=== PATIENT | male | born 1960 | race Caucasian/White ===

== ENCOUNTER → 2019-10-02 | Day surgery (SDC) | payer BC ==
[~2019-10-02] MED LIST: PROPOFOL 10 MG/ML 20 ML VIAL IV ONE; SODIUM CHLORIDE 0.9% 1,000 ML IV SCH; SODIUM CHLORIDE 0.9% 500 ML 500 ML IV ONE
[2019-10-02 11:34] VITALS: RESP 16; TEMP 98
[2019-10-02 11:49] LABS: African American GFR (CKD) >90 (>60 ml/min/1.73 sqM); Anion Gap 9 mmol/L; Blood Urea Nitrogen 12 mg/dL (9-20); Calcium 9.4 mg/dL (8.4-10.2); Carbon Dioxide 23 mmol/L (22-30); Chloride 106 mmol/L (98-107); Glucose 105 mg/dL (74-99); Sodium 138 mmol/L (137-145)
[2019-10-02 11:52] LABS: Potassium 4.6 mmol/L (3.5-5.1)
--- NOTE | 2019-10-02 12:37 | P.HPCAR ---
History of Present Illness This is Dr. Miller dictating an H&P on this patient The patient was interviewed and examined by me IMPRESSION / ASSESSMENT: Persistent atrial fibrillation, symptomatic, failed chemical cardioversion with flecainide 100 mg twice daily Hypertension PLAN: Electrical cardioversion on flecainide 100 mg twice daily If the adjustment of the dose of diltiazem if needed Continue anticoagulation uninterrupted HPI Patient remains in atrial fibrillation despite starting flecainide 100 mg twice daily about a week back. His chest does not show any evidence for ischemia. He was in persistent atrial fibrillation and I had called him to start flecainide 100 mg twice daily. His follow-up 12-lead ECG showed atrial fibrillation. He f eels the palpitations and he doesn't feel right and feels short of breath No dizziness lightheadedness or chest pain No fever chills or rigors. Pulmonary symptoms no abdominal symptoms no lower extremity edema no syncope ROS: No fever chills or rigors, no cough, phlegm or expectoration, no nausea, vomiting or diarrhea, no hematuria, dysuria, no musculoskeletal complaints, no strokes or seizures, no skin lesions. EXAMINATION: Afebrile 98F pulse rate in the 80s irregular No JVD no carotid bruits Normal S1, normal S2 but irregular no murmurs or gallop no rub Abdomen is soft nontender Extremities are warm. He has a cast in the right lower leg REVIEW OF LABS, ECG & MEDICAL DATA Sodium 138, potassium 4.6, BUN 12 creatinine 0.73, glucose 105, calcium 9.4 Physical Exam Vitals: Vital Signs Temp Pulse Resp BP Pulse Ox 10/02/19 11:31 98 F 87 16 138/97 98 Intake and Output 10/01/19 10/02/19 10/02/19 22:59 06:59 14:59 Intake Total 50 Balance 50 Intake: IV 50 Other: Weight 92.7 kg Physical Examination Vital Signs Temp Pulse Resp BP Pulse Ox 10/02/19 11:31 98 F 87 16 138/97 98 Intake and Output 10/01/19 10/02/19 10/02/19 22:59 06:59 14:59 Intake Total 50 Balance 50 Intake: IV 50 Other: Weight 92.7 kg Results 10/02/19 11:10 Comprehensive Metabolic Panel 10/02/19 Range/Units 11:10 Sodium 138 (137-145) mmol/L Potassium 4.6 (3.5-5.1) mmol/L Chloride 106 (98-107) mmol/L Carbon Dioxide 23 (22-30) mmol/L BUN 12 (9-20) mg/dL Creatinine 0.73 (0.66-1.25) mg/dL Glucose 105 H (74-99) mg/dL Calcium 9.4 (8.4-10.2) mg/dL Current Medications Generic Name Dose Route Start Last Admin Trade Name Freq PRN Reason Stop Dose Admin Sodium Chloride 1,000 mls @ 20 mls/hr 10/02/19 06:09 Saline 0.9% IV .Q24H DINO Intake and Output 10/01/19 10/02/19 10/02/19 22:59 06:59 14:59 Intake Total 50 Balance 50 Intake: IV 50 Other: Weight 92.7 kg Patient Weight 10/03/19 06:59 Weight 92.7 kg 10/02/19 11:10
--- NOTE | 2019-10-02 12:44 | P.PCN ---
Preoperative Diagnosis: Diagnosis Persistent symptomatically atrial fibrillation currently on flecainide 100 mg twice daily Failed chemical cardioversion Procedure details 200 J biphasic shock was used to successfully electrically cardiovert the patient in the AP configuration Sinus mechanism post cardioversion in the 80s Suggest Continue flecainide 100 mg twice daily Continue diltiazem 240 mg by mouth daily Continue ELIQUIS If he has a recurrence of atrial fibrillation he should be considered for an A. fib ablation
[2019-10-02 19:01] VITALS: BP 118/82; PULSE 75
== END | disposition home or self-care (01) ==
LOC: CATHEP 10:56
PROVIDERS: ATTEND Internal Medicine Clinical Cardiac Electrophysiology
DX: I48.19 Other persistent atrial fibrillation (principal); I10 Essential (primary) hypertension; Z79.01 Long term (current) use of anticoagulants; Z88.0 Allergy status to penicillin; Z79.02 Long term (current) use of antithrombotics/antiplatelets; Z79.899 Other long term (current) drug therapy; Z98.890 Other specified postprocedural states
CPT/HCPCS: 92960; 80061; 80048; 84443; J2704

== ENCOUNTER 2019-10-03 10:35 | Emergency (ER) | payer BC ==
[2019-10-03 10:42] VITALS: RESP 18
--- NOTE | 2019-10-03 11:05 | ED ---
General Adult HPI - General Chief complaint: Recheck/Abnormal Lab/Rx Stated complaint: foot pain Time Seen by Provider: 10/03/19 10:51 Source: patient, RN notes reviewed Mode of arrival: ambulatory Limitations: no limitations - History of Present Illness Initial comments: Patient is a pleasant 59-year-old male presenting to the emergency Department with complaints of right ankle discomfort. Patient states symptoms have been somewhat increasing over the past week. Patient did have surgery several weeks ago. Patient was in a soft cast then switched to a hard cast around a week ago. Patient did have a fracture approximately a month and a half ago. Patient did not have immediate surgery secondary to concerns for swelling. Patient states he did fracture both the inner and outer parts of the ankle and did have a plate placed. Patient denies any fevers. Patient states symptoms are waxing and waning. Patient states symptoms this morning were somewhat severe. Patient was prescribed OxyContin however does not have any with him because he is out of town. Patient did have his surgery done in [place]. Patient came to [facility] in order to see cardiology here. Patient was cardioverted for history of atrial fibrillation. - Related Data Home Medications Medication Instructions Recorded Confirmed Apixaban [Eliquis] 5 mg PO BID 09/29/19 10/02/19 Diltiazem Cd [Cardizem CD] 240 mg PO DAILY 09/29/19 10/02/19 Docusate [Colace] 200 mg PO Q2D PRN 09/29/19 09/29/19 Acetaminophen Tab [Tylenol Tab] 500 mg PO Q6H 10/02/19 10/02/19 Flecainide Acetate 100 mg PO BID 10/02/19 10/02/19 Allergies Allergy/AdvReac Type Severity Reaction Status Date / Time Penicillins Allergy Unknown Verified 10/02/19 11:44 Review of Systems ROS Statement: Those systems with pertinent positive or pertinent negative responses have been documented in the HPI. ROS Other: All systems not noted in ROS Statement are negative. Constitutional: Denies: fever Eyes: Denies: eye pain ENT: Denies: ear pain Respiratory: Denies: cough, dyspnea Cardiovascular: Denies: chest pain, palpitations Endocrine: Denies: fatigue Gastrointestinal: Denies: abdominal pain Genitourinary: Denies: dysuria Musculoskeletal: Reports: as per HPI Skin: Denies: rash Neurological: Denies: weakness Past Medical History Past Medical History: Atrial Fibrillation, Hypertension History of Any Multi-Drug Resistant Organisms: None Reported Additional Past Surgical History / Comment(s): cardioversion Past Psychological History: No Psychological Hx Reported Smoking Status: Never smoker Past Alcohol Use History: None Reported, Occasional Past Drug Use History: None Reported General Exam Limitations: no limitations General appearance: alert, in no apparent distress Head exam: Present: normocephalic Eye exam: Present: normal appearance Neck exam: Present: normal inspection Respiratory exam: Present: normal lung sounds bilaterally Cardiovascular Exam: Present: regular rate, normal rhythm GI/Abdominal exam: Present: soft. Absent: tenderness Extremities exam: Present: other (Right leg with cast from the distal foot to the proximal tib-fib region. Distally toes are neurovascularly intact. Good strength, good sensation, cap refill less than 2 seconds. No color change.) Neurological exam: Present: alert Psychiatric exam: Present: normal affect, normal mood Skin exam: Present: normal color Course Vital Signs 10/03/19 10/03/19 10/03/19 10:37 13:13 15:14 Temperature 97.7 F Pulse Rate 72 80 60 Respiratory 18 18 18 Rate Blood Pressure 142/93 117/77 121/79 O2 Sat by Pulse 100 99 100 Oximetry - Reevaluation(s) Reevaluation #1: 10/03/19 12:56 Patient's orthopedic doctor has been paged., Dr. Stephenson from [facility] in [place] 10/03/19 14:39 Reevaluated and updated. Still waiting on Dr. Stephenson 10/03/19 16:29 Dr. Jensen did call back however I was occupied with a critical pediatric patient and unable to take the call. He did go back into surgery. Patient again reevaluated and updated. Patient states pain is back down to 50%, patient states pain was very severe earlier. 10/03/19 16:36 Case was discussed with Dr. Elise who does work at [facility] in [place] who will accept transfer. Patient and family updated. Family states they will drive patient. Patient refuses ambulance for transfer. Records will be provided. EKG Findings - EKG Comments: EKG Findings:: Normal sinus rhythm at 60. NM 190. QRS 90. QT 432. QTC 432. Normal axis. Normal QRS. No acute ST change. Procedures - Orthopedic Splinting/Casting Injury #1 Side: right Lower Extremity Injury Location: short leg, ankle Lower Extremity Immobilizer: posterior splint Medical Decision Making - Lab Data Result diagrams: 10/03/19 11:45 10/03/19 11:45 Lab Results 10/03/19 10/03/19 10/03/19 Range/Units 11:45 11:45 11:45 WBC 8.8 (3.8-10.6) k/uL RBC 4.36 (4.30-5.90) m/uL Hgb 14.6 (13.0-17.5) gm/dL Hct 42.8 (39.0-53.0) % MCV 98.3 (80.0-100.0) fL MCH 33.6 (25.0-35.0) pg MCHC 34.1 (31.0-37.0) g/dL RDW 12.4 (11.5-15.5) % Plt Count 269 (150-450) k/uL Neutrophils % 74 % Lymphocytes % 15 % Monocytes % 5 % Eosinophils % 2 % Basophils % 1 % Neutrophils # 6.6 (1.3-7.7) k/uL Lymphocytes # 1.3 (1.0-4.8) k/uL Monocytes # 0.5 (0-1.0) k/uL Eosinophils # 0.2 (0-0.7) k/uL Basophils # 0.1 (0-0.2) k/uL PT (9.0-12.0) sec INR (<1.2) APTT (22.0-30.0) sec Sodium 137 (137-145) mmol/L Potassium 4.3 (3.5-5.1) mmol/L Chloride 104 (98-107) mmol/L Carbon Dioxide 21 L (22-30) mmol/L Anion Gap 12 mmol/L BUN 12 (9-20) mg/dL Creatinine 0.72 (0.66-1.25) mg/dL Est GFR (CKD-EPI)AfAm >90 (>60 ml/min/1.73 sqM) Est GFR (CKD-EPI)NonAf >90 (>60 ml/min/1.73 sqM) Glucose 88 (74-99) mg/dL Plasma Lactic Acid Kevin 1.1 (0.7-2.0) mmol/L Calcium 9.3 (8.4-10.2) mg/dL Total Bilirubin 0.7 (0.2-1.3) mg/dL AST 33 (17-59) U/L ALT 50 (21-72) U/L Alkaline Phosphatase 74 (38-126) U/L Total Protein 7.7 (6.3-8.2) g/dL Albumin 4.1 (3.5-5.0) g/dL 10/03/19 Range/Units 11:45 WBC (3.8-10.6) k/uL RBC (4.30-5.90) m/uL Hgb (13.0-17.5) gm/dL Hct (39.0-53.0) % MCV (80.0-100.0) fL MCH (25.0-35.0) pg MCHC (31.0-37.0) g/dL RDW (11.5-15.5) % Plt Count (150-450) k/uL Neutrophils % % Lymphocytes % % Monocytes % % Eosinophils % % Basophils % % Neutrophils # (1.3-7.7) k/uL Lymphocytes # (1.0-4.8) k/uL Monocytes # (0-1.0) k/uL Eosinophils # (0-0.7) k/uL Basophils # (0-0.2) k/uL PT 10.6 (9.0-12.0) sec INR 1.0 (<1.2) APTT 27.6 (22.0-30.0) sec Sodium (137-145) mmol/L Potassium (3.5-5.1) mmol/L Chloride (98-107) mmol/L Carbon Dioxide (22-30) mmol/L Anion Gap mmol/L BUN (9-20) mg/dL Creatinine (0.66-1.25) mg/dL Est GFR (CKD-EPI)AfAm (>60 ml/min/1.73 sqM) Est GFR (CKD-EPI)NonAf (>60 ml/min/1.73 sqM) Glucose (74-99) mg/dL Plasma Lactic Acid Kevin (0.7-2.0) mmol/L Calcium (8.4-10.2) mg/dL Total Bilirubin (0.2-1.3) mg/dL AST (17-59) U/L ALT (21-72) U/L Alkaline Phosphatase (38-126) U/L Total Protein (6.3-8.2) g/dL Albumin (3.5-5.0) g/dL Disposition Clinical Impression: Postoperative infection Disposition: OTHER INSTITUTION NOT DEFINED Is patient prescribed a controlled substance at d/c from ED?: No Referrals: Js Schultz DO [Primary Care Provider] - 1-2 days Time of Disposition: 16:37 - Out of Hospital Transfer - Req. Specs Out of Hospital Transfer - Requested Specifics: Other Emergency Center
--- NOTE | 2019-10-03 11:52 | XR ---
EXAMINATION TYPE: XR ankle complete RT DATE OF EXAM: 10/03/2019 CLINICAL HISTORY: Right ankle worsening pain since surgery September 25. TECHNIQUE: Frontal, lateral and oblique images of the right ankle are obtained. COMPARISON: None. FINDINGS: Overlying fiberglass cast material. Lateral fixating plate through lateral malleolus. Poor visualization of acute or subacute fracture. Mild to moderate soft tissue swelling over lateral malle olus remains present. Alignment satisfactory. Ankle mortise symmetry preserved. IMPRESSION: As above.
[2019-10-03] MEDS ORDERED: MORPHINE SULFATE 2 MG/ML SYRINGE IVP STA (12:26)
[2019-10-03 12:35] LABS: Basophils # (A) 0.1 k/uL (0-0.2); Basophils % (A) 1 %; Eosinophils # (A) 0.2 k/uL (0-0.7); Eosinophils % (A) 2 %; HCT 42.8 % (39.0-53.0); HGB 14.6 gm/dL (13.0-17.5); Lymphocytes # (A) 1.3 k/uL (1.0-4.8); Lymphocytes % (A) 15 %; MCH 33.6 pg (25.0-35.0); MCHC 34.1 g/dL (31.0-37.0); MCV 98.3 fL (80.0-100.0); Mean Platelet Volume 6.4; Monocytes # (A) 0.5 k/uL (0-1.0); Monocytes % (A) 5 %; Neutrophils # (A) 6.6 k/uL (1.3-7.7); Neutrophils % (A) 74 %; Platelet Count 269 k/uL (150-450); RBC 4.36 m/uL (4.30-5.90); RDW 12.4 % (11.5-15.5); WBC 8.8 k/uL (3.8-10.6)
[2019-10-03 12:41] LABS: ALT 50 U/L (21-72); AST 33 U/L (17-59); African American GFR (CKD) >90 (>60 ml/min/1.73 sqM); Albumin 4.1 g/dL (3.5-5.0); Alkaline Phosphatase 74 U/L (38-126); Anion Gap 12 mmol/L; Blood Urea Nitrogen 12 mg/dL (9-20); Calcium 9.3 mg/dL (8.4-10.2); Carbon Dioxide 21 mmol/L (22-30); Chloride 104 mmol/L (98-107); Glucose 88 mg/dL (74-99); Potassium 4.3 mmol/L (3.5-5.1); Sodium 137 mmol/L (137-145); Total Bilirubin 0.7 mg/dL (0.2-1.3); Total Protein 7.7 g/dL (6.3-8.2)
[2019-10-03 13:00] LABS: Partial Thromboplastin Time 27.6 sec (22.0-30.0); Prothrombin Time 10.6 sec (9.0-12.0)
[2019-10-03] MEDS ORDERED: HYDROmorphone 1 MG/ML 1 ML SYRINGE IVP STA (14:37)
[2019-10-03 17:41] VITALS: BP 112/75; PULSE 54; TEMP 98.7
== END 2019-10-03 17:48 | disposition short-term general hospital (02) ==
LOC: EC 10:35
DX: T81.40XA Infection following a procedure, unspecified, initial encounter (principal); I48.91 Unspecified atrial fibrillation; I10 Essential (primary) hypertension; Z88.0 Allergy status to penicillin; Z79.01 Long term (current) use of anticoagulants; Z79.891 Long term (current) use of opiate analgesic; Z79.899 Other long term (current) drug therapy; Z87.81 Personal history of (healed) traumatic fracture; Z98.890 Other specified postprocedural states
CPT/HCPCS: 36415; 93005; 80053; 83605; 85025; 85610; 85730; 87040; 87070; 87205; 73610; 99285; 29515; 96365; 96375 ×2; J0690; J2270; J1170

== ENCOUNTER 2019-11-27 10:59 | Day surgery (SDC) | payer BC ==
[2019-11-17 12:52] VITALS: BMI 29.2
[2019-11-27] MEDS ORDERED: SODIUM CHLORIDE 0.9% 1,000 ML IV ONE ×2 (12:00→18:46)
[2019-11-27 12:15] LABS: Basophils # (A) 0.1 k/uL (0-0.2); Basophils % (A) 1 %; Eosinophils # (A) 0.1 k/uL (0-0.7); Eosinophils % (A) 2 %; HCT 48.2 % (39.0-53.0); HGB 16.5 gm/dL (13.0-17.5); Lymphocytes # (A) 1.7 k/uL (1.0-4.8); Lymphocytes % (A) 26 %; MCH 33.4 pg (25.0-35.0); MCHC 34.2 g/dL (31.0-37.0); MCV 97.7 fL (80.0-100.0); Mean Platelet Volume 8.2; Monocytes # (A) 0.4 k/uL (0-1.0); Monocytes % (A) 6 %; Neutrophils # (A) 4.3 k/uL (1.3-7.7); Neutrophils % (A) 64 %; Platelet Count 326 k/uL (150-450); RBC 4.93 m/uL (4.30-5.90); RDW 13.5 % (11.5-15.5); WBC 6.8 k/uL (3.8-10.6)
[2019-11-27 12:23] LABS: African American GFR (CKD) >90 (>60 ml/min/1.73 sqM); Anion Gap 12 mmol/L; Blood Urea Nitrogen 14 mg/dL (9-20); Calcium 9.8 mg/dL (8.4-10.2); Carbon Dioxide 25 mmol/L (22-30); Chloride 104 mmol/L (98-107); Glucose 96 mg/dL (74-99); Non-African American GFR(CKD) >90 (>60 ml/min/1.73 sqM); Sodium 141 mmol/L (137-145)
[2019-11-27 12:51] LABS: Potassium 4.4 mmol/L (3.5-5.1)
[2019-11-27] MEDS ORDERED: ROCURONIUM BROMIDE 10 MG/ML 10 ML VIAL IV ONE (13:17)
[2019-11-27] MEDS ORDERED: fentaNYL (PF) 50 MCG/ML 2 ML AMP ONE (13:17)
[2019-11-27] MEDS ORDERED: ONDANSETRON 4 MG/2 ML VIAL ONE (13:17)
[2019-11-27] MEDS ORDERED: ISOPROTERENOL 250 MCG/1.25 ML SYR IV ONE (13:17)
[2019-11-27] MEDS ORDERED: NEOSTIGMINE 1 MG/ML 10 ML VIAL ONE (13:17)
[2019-11-27] MEDS ORDERED: PROPOFOL 10 MG/ML 20 ML VIAL IV ONE (13:17)
[2019-11-27] MEDS ORDERED: GLYCOPYRROLATE 0.2 MG/ML 2 ML VIAL ONE (13:17)
[2019-11-27] MEDS ORDERED: HYDROmorphone (PF) 1 MG/ML ONE (13:17)
[2019-11-27] MEDS ORDERED: HEPARIN SODIUM,PORCINE 10,000 UNIT/ML 1 ML VIAL ONE (13:17)
[2019-11-27] MEDS ORDERED: PROTAMINE SULFATE 10 MG/ML 5 ML VIAL IV ONE (13:17)
[2019-11-27] MEDS ORDERED: FUROSEMIDE 10 MG/ML 2 ML VIAL ONE (13:17)
[2019-11-27] MEDS ORDERED: MIDAZOLAM 2 MG/2 ML VIAL ONE (13:17)
[2019-11-27] MEDS ORDERED: SUCCINYLCHOLINE CHLORIDE 100 MG/5 ML SYR IV ONE (13:17)
[2019-11-27] MEDS ORDERED: LIDOCAINE 1% INJ 10MG/ML (20 ML MDV) ONE (13:35)
[2019-11-27] MEDS ORDERED: LIDOCAINE 1% INJ 10MG/ML (20 ML MDV) SQ ONE (14:12)
[2019-11-27] MEDS ORDERED: HEPARIN SOD,PORK IN 0.45% NACL 25,000 UNIT in 0.45% NACL 1 250ML.BAG IV ONE (14:13)
[2019-11-27] MEDS ORDERED: IOPAMIDOL-370 100ML BTL INJ ONE (16:50)
[2019-11-27] MEDS ORDERED: HEPARIN SODIUM (1,000 UNIT/ML) 1,000 UNIT in SODIUM CHLORIDE 0.9% 1,000 ML IRRIGATION ONE (16:51)
--- NOTE | 2019-11-27 19:05 | P.PCN ---
Preoperative Diagnosis: Diagnosis Atrial fibrillation, symptomatic, refractory to therapy Persistent Refractory to flecainide Wide QRS with flecainide Result No left atrial appendage mass seen on intracardiac echo Successful pulmonary vein isolation of all veins using cryo-ablation Complete entrance block in all 4 veins confirmed No evidence for phrenic nerve injury Radiofrequency ablation ablation along the mitral isthmus, left atrium with organization to an atrial tachycardia Successful mapping and ablation of atrial tachycardia at the roof with termi nation Esophageal deflection YES Electrical cardioversion with a synchronized shock across the chest NO Procedure details Patient was brought to the EP lab in a fasting state. Written informed consent was obtained prior to the procedure. Procedure performed under general anesthesia After initial muscle relaxant use, muscle relaxants were not given thereafter in order to assess phrenic nerve during procedure. Patient prepped and draped as per protocol Full cryo-set up with standard preparation of the cryoablation tools done. Femoral Venous access obtained on the right and left groins Venous and arterial Sheaths placed. Diagnostic catheters for the high right atrium, phrenic nerve stimulation and pacing, His bundle, RV and coronary sinus placed Intracardiac echo catheter placed. Long sheath placed in the right atrium Left and right transseptal catheterization performed under intracardiac echo guidance. Intravenous heparin with aCT above 300 Later, catheter positioning and balloon positioning in the left atrium, under intracardiac echo guidance Diagnostic EP study with Drug infusion, high-dose Isuprel. No inducible atrial fibrillation at the end of the procedure Coronary sinus pacing and recording Confirmation of bidirectional block across the mitral isthmus line Baseline measurements NE interval 157 ms QRS 88 ms QT 416 ms AH 48 ms HV 40 ms Sinus cycle length 1023 ms Sinus node recovery times at 500 ms was 1198 ms. Corresponded to sinus recovery times abnormal AV node Wenckebach block 380 ms Atrial pacing performed from the high right atrium and the coronary sinus RV pacing Transseptal catheterization performed RA pressure 16/11/14 LA pressure 25/9/14 Transseptal catheterization performed with standard sheath. The cryoablation sheath was then placed with an over the wire exchange without any acute complications. All 4 pulmonary veins were isolated in the following sequence: Left superior followed by left inferior followed by right superior followed by right inferior The cryo-ablation balloon was placed at the os of each vein 1.5 mL of IV dye was injected to confirm an occluded vein Goal during cryoablation was to achieve complete occlusion of the pulmonary vein, achieve -30 degrees C at 30 seconds and achieve -40 degrees C at 60 seconds and a time to effect of less than 60-90 seconds, . If not the balloon was repositioned to obtain this result After completion of Cryoblation with durations from 180-240 seconds, entrance block was confirmed with the Attain circular catheter in a roving fashion around the antrum of the pulmonary veins Phrenic nerve pacing was performed from the SVC, right innominate vein area and diaphragm voltage was monitored. Diaphragmatic contractions were also monitored manually for strength of contraction. Parameter goals for each cryo freeze Complete occlusion of the appropriate vein -30 degrees C by 30 seconds -40 degrees C by 60 seconds Minimum between minus 40-55 degrees C Thaw time greater than 10 seconds Balloon visualized by intracardiac echo The esophagus was intubated. Esophageal Temperature monitoring with a CIRCA catheter formed. Esophageal deflection for hypothermia of the esophagus below 30 degrees C Left superior pulmonary vein Complete isolation, entrance block Left inferior pulmonary vein Complete isolation, entrance block Right superior pulmonary vein, during phrenic nerve pacing Complete isolation, entrance block Right inferior pulmonary vein, during phrenic nerve pacing Complete isolation, entrance block At the end of the procedure the Achieve catheter was once again used to check for entrance block Phrenic nerve stimulation was performed to confirm diaphragmatic stimulation the end of the procedure Cine fluoroscopy was performed at the very end of the procedure to confirm movement of both diaphragms with inspiration and expiration At the end of the procedure the patient was extubated Heparin was reversed Venous sheaths were removed and hemostasis assured Procedures performed (PVI - CRYO Ablation) Diagnostic EP study CS pacing and recording Left and right transseptal catheterization 3D mapping Intracardiac echocardiography Pulmonary vein isolation with transseptal and comprehensive EPS, [id number] Left atrial roof line, +[id number] Linear ablation, left atrium, +[id number] Drug Infusion +[id number]
--- NOTE | 2019-11-27 19:13 | P.HPCAR ---
History of Present Illness This is Dr. Miller dictating an H&P on this patient The patient was interviewed and examined by me IMPRESSION / ASSESSMENT: Persistent symptomatic atrial fibrillation Failed flecainide Intolerance to flecainide wide complex tachycardia Hypertension PLAN: Continue ELIQUIS Proceed with A. fib ablation with pulmonary vein isolation followed by linear ablation based on the response to PVI HPI 59-year-old male patient who is had symptomatic atrial fibrillation with palpitations dizziness shortness of breath and blurring of vision I initially treated with flecainide and cardioverted him. Subsequently had a breakthrough episode with a wide complex tachycardia, proarrhythmia secondary to flecainide He also had ankle surgery and was on IV antibiotics postoperatively He is here for an A. fib ablation for management of symptomatic A. fib He denies any fever chills cough no pulmonary symptoms no urinary symptoms He does not have any cellulitis or infection around the ankle. Antibiotics course have been completed He does have pain in the ankle ROS: No fever chills or rigors, no cough, phlegm or expectoration, no nausea, vomiting or diarrhea, no hematuria, dysuria, no musculoskeletal complaints, no strokes or seizures, no skin lesions. EXAMINATION: Afebrile 98.1F pulse rate 8200 beats a minute irregular blood pressure 125/85 mmHg pulse ox 96% No JVD Lying flat in bed Breath sounds are clear no rhonchi no crackles Normal heart sounds but irregular Abdomen is soft nontender No cellulitis or swelling around the ankle no lower extremity edema REVIEW OF LABS, ECG & MEDICAL DATA White count 6.8, hemoglobin 16.5, platelet count 326,000 Sodium 141 potassium 4.4 BUN 14 creatinine 0.84 Physical Exam Vitals: Vital Signs Temp Pulse Resp BP Pulse Ox 11/27/19 12:18 98.1 F 88 16 125/85 96 Intake and Output 11/27/19 11/27/19 11/27/19 06:59 14:59 22:59 Intake Total 1050 750 Output Total 250 Balance 1050 500 Intake: IV 1050 750 Output: Urine 250 Other: Weight 95.2 kg Past Medical History Past Medical History: Atrial Fibrillation, Cancer, Hypertension Additional Past Medical History / Comment(s): fx rt ankle 09/11/19 developed infection was treated with antibiotics resolved now continues with PT continues to experience with pain. basal cell skin cancer History of Any Multi-Drug Resistant Organisms: None Reported Additional Past Surgical History / Comment(s): cardioversion x2. fx rt ankle had surgery 09/11/19 with plates Past Anesthesia/Blood Transfusion Reactions: No Reported Reaction, Motion Sickness Smoking Status: Never smoker - Past Family History Father Family Medical History: Cancer Additional Family Medical History / Comment(s): skin cancer Physical Examination Vital Signs Temp Pulse Resp BP Pulse Ox 11/27/19 12:18 98.1 F 88 16 125/85 96 Intake and Output 11/27/19 11/27/19 11/27/19 06:59 14:59 22:59 Intake Total 1050 750 Output Total 250 Balance 1050 500 Intake: IV 1050 750 Output: Urine 250 Other: Weight 95.2 kg Results 11/27/19 11:45 11/27/19 11:45 CBC 11/27/19 Range/Units 11:45 WBC 6.8 (3.8-10.6) k/uL RBC 4.93 (4.30-5.90) m/uL Hgb 16.5 (13.0-17.5) gm/dL Hct 48.2 (39.0-53.0) % Plt Count 326 (150-450) k/uL Comprehensive Metabolic Panel 11/27/19 Range/Units 11:45 Sodium 141 (137-145) mmol/L Potassium 4.4 (3.5-5.1) mmol/L Chloride 104 (98-107) mmol/L Carbon Dioxide 25 (22-30) mmol/L BUN 14 (9-20) mg/dL Creatinine 0.84 (0.66-1.25) mg/dL Glucose 96 (74-99) mg/dL Calcium 9.8 (8.4-10.2) mg/dL Current Medications Generic Name Dose Route Start Last Admin Trade Name Freq PRN Reason Stop Dose Admin Sodium Chloride 1,000 mls @ 20 mls/hr 11/27/19 06:09 Saline 0.9% IV .Q24H DINO Lactated Ringer's 1,000 mls @ 20 mls/hr 11/27/19 06:09 Lactated Ringers IV .Q24H DINO Intake and Output 11/27/19 11/27/19 11/27/19 06:59 14:59 22:59 Intake Total 1050 750 Output Total 250 Balance 1050 500 Intake: IV 1050 750 Output: Urine 250 Other: Weight 95.2 kg Patient Weight 11/28/19 06:59 Weight 95.2 kg 11/27/19 11:45 11/27/19 11:45
[2019-11-27] MEDS ORDERED: ACETAMINOPHEN IV (For NPO) 1,000 MG in EMPTY BAG 1 BAG IVPB ONE (19:14)
[2019-11-27] MEDS ORDERED: ACETAMINOPHEN TAB 325 MG TAB PO PRN (19:14)
[2019-11-27 19:40] VITALS: RESP 18
[2019-11-27] MEDS: LACTATED RINGERS 1,000 ML IV SCH (20:52)
[2019-11-27] MEDS: SODIUM CHLORIDE 0.9% 1,000 ML IV SCH (20:52)
[2019-11-27] MEDS: DILTIAZEM CD 120 MG CAP.ER.24H PO SCH (20:52)
[2019-11-27] MEDS: APIXABAN 5 MG TAB PO SCH (20:52)
[2019-11-27] MEDS: HYDROcodone/APAP 5-325MG 1 EACH TAB PO PRN (21:48)
[2019-11-27] MEDS: HYDROmorphone 1 MG/ML 1 ML SYRINGE IVP PRN (22:58)
[2019-11-28] MEDS: HYDROcodone/APAP 5-325MG 1 EACH TAB PO PRN ×2 (02:18→06:49)
[2019-11-28] MEDS: LACTATED RINGERS 1,000 ML IV SCH (03:51)
[2019-11-28] MEDS: HYDROmorphone 1 MG/ML 1 ML SYRINGE IVP PRN (04:25)
[2019-11-28] MEDS: SODIUM CHLORIDE 0.9% 1,000 ML IV SCH (06:49)
--- NOTE | 2019-11-28 07:57 | P.DS ---
Providers Attending physician: Yung Miller Primary care physician: Js Bryan [facility] Course: Discharge summary Patient is doing well. He has mild pleuritic chest discomfort only when he takes a deep breath in but for most part his chest feels fine. He does have a sore throat but this is quite tolerable his main problem is his chronic ankle discomfort. He's had surgery. No dizziness lightheadedness no palpitations History lead EKG shows sinus mechanism normal cardiac intervals no ST segment abnormalities On examination Afebrile 97.9F, pulse rate in the 70s normal respirations, blood pressure 113/70 mmHg Breath sounds are clear no rhonchi no crackles Normal heart sounds I don't hear a rub no murmurs rhythm is regular Breath sounds are clear I don't hear any rhonchi no crackles at the bases bilaterally Abdomen is soft nontender His groins of healed well there is no hematoma there is minimal tenderness I removed his sutures from both groins Impression Persistent symptomatic atrial fibrillation Failed flecainide Proarrhythmia with flecainide Hypertension Status post PVI with some organization of atrial fibrillation Mitral isthmus linear ablation Organization to an atrial tachycardia Successful left atrial roof tachycardia ablation would termination of the arrhy thmia No inducible atrial fibrillation despite high-dose Isuprel thereafter Both linear ablation lines were interrogated and treat block was noted across lines Plan Continue apixaban Continue Cardizem for now Follow up in 1 week Plan - Discharge Summary Discharge Rx Participant: No New Discharge Prescriptions: Continue Diltiazem Cd [Cardizem CD] 120 mg PO BID Apixaban [Eliquis] 5 mg PO BID Discharge Medication List Apixaban [Eliquis] 5 mg PO BID 09/29/19 [History] Diltiazem Cd [Cardizem CD] 120 mg PO BID 09/29/19 [History] Follow up Appointment(s)/Referral(s): Yung Miller MD [STAFF PHYSICIAN] - 1 Week (Follow-up with Dr. Miller/Laurel Turner/Em Guy within one week) Activity/Diet/Wound Care/Special Instructions: Post EP study - Ablation instructions 1. Keep access sites dry for 2 days. 2. No heavy lifting or straining for 2 days. 3. Avoid bending the hips repeatedly for 2 days. 4. You may go up and down stairs slowly Call if the following is noted 1. Bleeding, increasing swelling or pain at the access sites. 2. Increasing chest discomfort, especially upon taking a deep breath. 3. Increasing shortness of breath, at rest or with exertion. 4. Undue cough / phlegm 5. Difficulty or pain while swallowing. 6. Pain or change in color in the extremities. 7. Fever, chills, rigors. 8. Increasing headache or neurologic symptoms. 9. Dizziness, fainting, palpitations Continue ANIL Branch Follow Dr. Miller one week Discharge Disposition: HOME SELF-CARE
[2019-11-28] MEDS: APIXABAN 5 MG TAB PO SCH (08:07)
[2019-11-28] MEDS: DILTIAZEM CD 120 MG CAP.ER.24H PO SCH (08:07)
[2019-11-28 11:49] VITALS: BP 113/72; PULSE 75; TEMP 97.8
== END 2019-11-28 16:15 | disposition home or self-care (01) ==
LOC: CATHEP 10:59 → 1SOBS 19:21 → CATHEP 11-28 16:15
PROVIDERS: ATTEND Internal Medicine Clinical Cardiac Electrophysiology
DX: I48.19 Other persistent atrial fibrillation (principal); T46.2X5A Adverse effect of other antidysrhythmic drugs, initial encounter; I47.1 Supraventricular tachycardia; I10 Essential (primary) hypertension; Z79.01 Long term (current) use of anticoagulants; Z98.890 Other specified postprocedural states; Z85.828 Personal history of other malignant neoplasm of skin; Z80.8 Family history of malignant neoplasm of other organs or systems; Z79.899 Other long term (current) drug therapy
CPT/HCPCS: 85347; 93623; 93662; 93609; 93656; 80048; 85025; C1769 ×5; C1894 ×2; C1730 ×2; C1759; C1893; C1733; C1732; J2001; J1644 ×2; J1170 ×2; J0131; Q9967